=== PATIENT | male | born 1990 | race Caucasian/White ===

== ENCOUNTER 2020-02-05 21:55 | Emergency (ER) | payer OTHER ==
[~2020-02-05] VITALS: Ht 170.2 cm; Wt 99.8 kg
[2020-02-05 21:55] VITALS: BP 146/85
[2020-02-05] MEDS ORDERED: LISI-538 PO (22:16)
[2020-02-05] MEDS ORDERED: HYDR-3363 PO (22:16)
[2020-02-05] MEDS ORDERED: LEXA1TAB PO (22:16)
[2020-02-05] MEDS ORDERED: BENA25CA4 PO (22:16)
[2020-02-05] MEDS ORDERED: BUPR15TA PO (22:16)
[2020-02-06] MEDS ORDERED: HYDROCORTISONE 1% CREAM 30 GM TOP ONE
[2020-02-06] MEDS ORDERED: predniSONE 20 MG TAB PO ONE
[2020-02-06] MEDS ORDERED: HYDR1CRE30 TOP (00:02)
[2020-02-06] MEDS ORDERED: CLAR10CA3 PO (00:02)
[2020-02-06] MEDS ORDERED: PRED20TA PO (00:02)
== END 2020-02-06 00:28 | disposition home or self-care (01) ==
LOC: M ED 21:55
DX: R21 Rash and other nonspecific skin eruption (principal); I10 Essential (primary) hypertension; F11.21 Opioid dependence, in remission; F41.9 Anxiety disorder, unspecified; F17.200 Nicotine dependence, unspecified, uncomplicated; Z79.899 Other long term (current) drug therapy

== ENCOUNTER 2020-02-13 20:39 | Emergency (ER) | payer OTHER ==
[~2020-02-13] VITALS: Ht 167.6 cm; Wt 99.8 kg
[~2020-02-13 20:39] MED LIST: BENA25CA4 PO; BUPR15TA PO; CLAR10CA3 PO; HYDR-3363 PO; HYDR1CRE30 TOP; LEXA1TAB PO; LISI-538 PO; PRED20TA PO
[2020-02-13] MEDS ORDERED: NAPR-885 PO (21:52)
[2020-02-13 22:29] LABS: BASO # 0.1 10^3/uL (0.0-0.2); BASO % 0.5 % (0.0-1.0); EOS % 0.4 % (0.0-3.0); HEMATOCRIT 43.7 % (42.0-52.0); HEMOGLOBIN 14.9 g/dl (13.5-17.5); LYMPH # 1.5 10^3/uL (1.5-5.0); LYMPH % 16.9 % (24.0-44.0); MEAN CORPUSCULAR HEMOGLOBIN 29.7 pg (27.0-33.0); MEAN CORPUSCULAR HGB CONC 34.1 g/dl (32.0-36.5); MEAN CORPUSCULAR VOLUME 87.2 fl (80.0-96.0); MONO # 0.4 10^3/uL (0.0-0.8); MONO % 4.2 % (0.0-5.0); NEUTROPHILS # 7.1 10^3/uL (1.5-8.5); NEUTROPHILS % 77.7 % (36.0-66.0); PLATELET COUNT, AUTOMATED 296 10^3/uL (150-450); RED BLOOD COUNT 5.01 10^6/uL (4.30-6.10); WHITE BLOOD COUNT 9.1 10^3/uL (4.0-10.0)
[2020-02-13 22:41] LABS: INR 1.02; PROTHROMBIN TIME 13.6 SECONDS (11.8-14.0)
[2020-02-13 22:52] LABS: ALBUMIN 4.2 GM/DL (3.2-5.2); ALT/SGPT 50 U/L (12-78); BILIRUBIN,DIRECT 0.1 MG/DL (0.0-0.2); BILIRUBIN,TOTAL 0.2 MG/DL (0.2-1.0); BLOOD UREA NITROGEN 15 MG/DL (7-18); CALCIUM LEVEL 8.9 MG/DL (8.5-10.1); CARBON DIOXIDE LEVEL 27 MEQ/L (21-32); CHLORIDE LEVEL 108 MEQ/L (98-107); CREATININE FOR GFR 1.16 MG/DL (0.70-1.30); GLOMERULAR FILTRATION RATE > 60.0 (>60); GLUCOSE, FASTING 98 MG/DL (70-100); LIPASE 146 U/L (73-393); POTASSIUM SERUM 3.9 MEQ/L (3.5-5.1); SODIUM LEVEL 141 MEQ/L (136-145); TOTAL PROTEIN 7.1 GM/DL (6.4-8.2)
[2020-02-13 23:14] VITALS: BP 140/79
== END 2020-02-13 23:32 | disposition home or self-care (01) ==
LOC: M ED 20:39
DX: K62.5 Hemorrhage of anus and rectum (principal); K76.0 Fatty (change of) liver, not elsewhere classified; F17.200 Nicotine dependence, unspecified, uncomplicated; Z79.52 Long term (current) use of systemic steroids; Z79.899 Other long term (current) drug therapy

== ENCOUNTER 2020-03-19 12:14 | Emergency (ER) | payer MEDICAID ==
[~2020-03-19] VITALS: Ht 167.6 cm; Wt 95.8 kg
[~2020-03-19 12:14] MED LIST changes: +NAPR-885 PO
[2020-03-19] MEDS ORDERED: NS 1,000 ML IV ONE (13:30)
[2020-03-19] MEDS: GASTROGRAFIN SOLUTION 30ML PO SCH ×2 (14:30→15:06)
[2020-03-19 14:34] LABS: BASO % 0.6 % (0.0-1.0); EOS # 0.3 10^3/uL (0.0-0.5); EOS % 4.6 % (0.0-3.0); HEMATOCRIT 45.8 % (42.0-52.0); HEMOGLOBIN 15.4 g/dl (13.5-17.5); LYMPH # 2.3 10^3/uL (1.5-5.0); LYMPH % 33.7 % (24.0-44.0); MEAN CORPUSCULAR HEMOGLOBIN 29.2 pg (27.0-33.0); MEAN CORPUSCULAR HGB CONC 33.6 g/dl (32.0-36.5); MEAN CORPUSCULAR VOLUME 86.9 fl (80.0-96.0); MONO # 0.4 10^3/uL (0.0-0.8); MONO % 6.1 % (0.0-5.0); NEUTROPHILS # 3.7 10^3/uL (1.5-8.5); NEUTROPHILS % 54.7 % (36.0-66.0); PLATELET COUNT, AUTOMATED 282 10^3/uL (150-450); RED BLOOD COUNT 5.27 10^6/uL (4.30-6.10); WHITE BLOOD COUNT 6.7 10^3/uL (4.0-10.0)
[2020-03-19 14:38] LABS: ALBUMIN 4.3 GM/DL (3.2-5.2); ALT/SGPT 41 U/L (12-78); AMYLASE 33 U/L (25-115); BILIRUBIN,DIRECT < 0.1 MG/DL (0.0-0.2); BILIRUBIN,TOTAL 0.3 MG/DL (0.2-1.0); BLOOD UREA NITROGEN 11 MG/DL (7-18); CALCIUM LEVEL 9.3 MG/DL (8.5-10.1); CARBON DIOXIDE LEVEL 29 MEQ/L (21-32); CHLORIDE LEVEL 105 MEQ/L (98-107); CREATININE FOR GFR 0.84 MG/DL (0.70-1.30); GLOMERULAR FILTRATION RATE > 60.0 (>60); GLUCOSE, FASTING 80 MG/DL (70-100); LIPASE 114 U/L (73-393); POTASSIUM SERUM 4.1 MEQ/L (3.5-5.1); SODIUM LEVEL 139 MEQ/L (136-145); TOTAL PROTEIN 7.2 GM/DL (6.4-8.2)
[2020-03-19 14:47] LABS: INR 1.01; PROTHROMBIN TIME 13.5 SECONDS (12.5-14.3)
[2020-03-19 14:48] LABS: PARTIAL THROMBOPLASTIN TIME 30.2 SECONDS (24.2-38.5)
[2020-03-19] MEDS ORDERED: ACETAMINOPHEN 500 MG TAB PO ONE (15:00)
[2020-03-19 15:34] LABS: ERYTHROCYTE SEDIMENTATION RATE 7 mm/hr (0-15)
[2020-03-19] MEDS ORDERED: ISOVUE-370 76% 100ML VIAL As Ordered ONE (16:14)
[2020-03-19 16:51] LABS: CLOSTRIDIUM DIFFICILE PCR NEGATIVE (NEGATIVE)
[2020-03-19] MEDS ORDERED: CIPR-249 PO (17:42)
[2020-03-19] MEDS ORDERED: DICY10CA13 PO (17:42)
[2020-03-19] MEDS ORDERED: CIPROFLOXACIN 500MG TABLET PO ONE (17:45)
[2020-03-19 17:59] VITALS: BP 133/92
== END 2020-03-19 18:11 | disposition home or self-care (01) ==
LOC: M ED 12:14
DX: R19.7 Diarrhea, unspecified (principal); K92.1 Melena; K52.82 Eosinophilic colitis; R53.81 Other malaise; R53.83 Other fatigue; R63.4 Abnormal weight loss; R21 Rash and other nonspecific skin eruption; I10 Essential (primary) hypertension; E78.5 Hyperlipidemia, unspecified; K76.0 Fatty (change of) liver, not elsewhere classified; Z87.442 Personal history of urinary calculi; F17.200 Nicotine dependence, unspecified, uncomplicated; Z83.79 Family history of other diseases of the digestive system
CPT/HCPCS: 74177; 80048; 80076; 81001; 82150; 83605; 83690; 85025; 85610; 85652; 85730; 86140; 87040; 87493; 87507; 96360; 99284; Q9963; Q9967

== ENCOUNTER → 2020-04-25 | Outpatient (REF) | payer OTHER ==
[~2020-04-25] MED LIST changes: +CIPR-249 PO; +DICY10CA13 PO
== END ==
LOC: M LAB REF 16:07
PROVIDERS: ATTEND Preventive Medicine Undersea and Hyperbaric Medicine
DX: K58.0 Irritable bowel syndrome with diarrhea (principal)

== ENCOUNTER 2020-08-26 13:31 | Emergency (ER) | payer OTHER ==
[~2020-08-26] VITALS: Ht 167.6 cm; Wt 101.6 kg
[~2020-08-26 13:31] MED LIST changes: -LISI-538 PO; +LISI20TA33 PO
[2020-08-26] MEDS ORDERED: ISOVUE-370 76% 100ML VIAL As Ordered ONE (15:35)
--- NOTE | 2020-08-26 16:53 | REP ---
INDICATION: LUQ pain, ventral hernia COMPARISON: 03/19/2020. TECHNIQUE: CT Scan of the abdomen and pelvis was performed with intravenous administration of 100 cc of Isovue 370, without oral contrast. Sagittal and coronal reconstruction images are performed. FINDINGS: Lung bases: Unremarkable. Liver: Normal Gallbladder: Unremarkable. Spleen: Normal. Adrenals: Normal. Pancreas: Normal. Kidneys: Normal. Small and large bowel: Unremarkable. Free fluid: None. Abdominal aorta: No aneurysm or dissection. Adenopathy: None. Appendix: Not inflamed. Osseous structures: Unremarkable. Pelvis: No mass. There is no evidence of anterior abdominal wall hernia. IMPRESSION: Negative CT abdomen and pelvis. <Electronically signed by Terrance Ahumada > 08/26/20 [id number]
[2020-08-26 18:10] VITALS: BP 135/82
== END 2020-08-26 18:12 | disposition home or self-care (01) ==
LOC: M ED 13:31
DX: K43.9 Ventral hernia without obstruction or gangrene (principal); I10 Essential (primary) hypertension; Z79.899 Other long term (current) drug therapy
CPT/HCPCS: 74177; 80047; 99284; Q9967

== ENCOUNTER 2020-10-13 23:47 | Emergency (ER) | payer OTHER ==
[~2020-10-13] VITALS: Ht 167.6 cm; Wt 95.5 kg
[2020-10-14] MEDS ORDERED: NAPROXEN 250 MG TAB PO ONE (00:45)
[2020-10-14] MEDS ORDERED: LIDOCAINE 4% CREAM 5GM (LMX4) TOP ONE (00:45)
--- NOTE | 2020-10-14 01:25 | REPVR ---
PROCEDURE INFORMATION: Exam: XR Right Foot Exam date and time: 10/14/2020 12:45 AM Age: 30 years old Clinical indication: Pain; Foot; Right TECHNIQUE: Imaging protocol: XR Right foot. Views: 3 or more views. COMPARISON: CR Ankle, complete RIGHT 10/14/2020 12:14 AM FINDINGS: Bones/joints: In the oblique view (image 1 of series 8), there is a calcific density lateral to the anterior process of the calcaneus, which may represent an avulsion fracture. No other fractures are noted in the right foot. The joint spaces and alignment are maintained. Soft tissues: There is soft tissue swelling in the dorsal aspect of the right midfoot. IMPRESSION: Calcific density adjacent to the anterior process of the right calcaneus, which may represent an avulsion fracture. Electronically signed by: Migel Poon On 10/14/2020 01:25:07 AM
--- NOTE | 2020-10-14 01:25 | REPVR ---
PROCEDURE INFORMATION: Exam: XR Right Ankle Exam date and time: 10/14/2020 12:44 AM Age: 30 years old Clinical indication: Pain; Right; Patient HX: Missed step and landed wrong on foot/ankle. Unable to weight bear. Additional info: Injury TECHNIQUE: Imaging protocol: XR Right ankle. Views: 3 or more views. COMPARISON: CR Foot, complete RIGHT 10/14/2020 12:28:56 AM FINDINGS: Bones/joints: In the oblique view (image 1 of series 3), there is a calcific density adjacent to the anterior process of the right calcaneus, which may represent an avulsion fracture. No other fractures are noted in the right ankle. The ankle mortise is symmetric. The joint spaces are preserved. No arthropathy is noted. Soft tissues: There is soft tissue swelling along the dorsal aspect of the right midfoot. IMPRESSION: Calcific density adjacent to the anterior process of the right calcaneus, which may represent an avulsion fracture. Electronically signed by: Migel Poon On 10/14/2020 01:25:29 AM
[2020-10-14] MEDS ORDERED: PERCOCET 5MG/325MG TAB PO ONE (01:30)
[2020-10-14] MEDS ORDERED: MORPHINE 10 MG/ML 1ML VIAL (J2270) IM ONE (01:50)
[2020-10-14] MEDS ORDERED: MORPHINE 4 MG/ML 1ML VIAL/SYRINGE (J2270) IV ONE (02:05)
--- NOTE | 2020-10-14 04:12 | REPVR ---
PROCEDURE INFORMATION: Exam: CT Right Lower Extremity Without Contrast, Foot Exam date and time: 10/14/2020 3:23 AM Age: 30 years old Clinical indication: Pain; Foot; Right; Additional info: Pain out of proportion to injury, avulsion FX TECHNIQUE: Imaging protocol: CT of the Right lower extremity without contrast was performed. Exam focused on the foot. Radiation optimization: All CT scans at this facility use at least one of these dose optimization techniques: automated exposure control; mA and/or kV adjustment per patient size (includes targeted exams where dose is matched to clinical indication); or iterative reconstruction. COMPARISON: CR Foot, complete RIGHT 10/14/2020 12:28 AM FINDINGS: Bones/joints: Slightly comminuted cortical margin avulsion fracture superolateral calcaneus. Soft tissues: Soft tissue edema laterally 2 cortical avulsion fractures. IMPRESSION: Slightly comminuted cortical margin fracture superolateral margin of the calcaneus. Electronically signed by: Sofy Godfrey On 10/14/2020 04:12:06 AM
[2020-10-14] MEDS ORDERED: OXYCODONE/APAP 5MG/325MG(BULK FOR ED) 1 TABLET PO ONE (04:45)
[2020-10-14 04:52] VITALS: BP 141/97
== END 2020-10-14 05:04 | disposition home or self-care (01) ==
LOC: M ED 23:47
DX: S92.001A Unspecified fracture of right calcaneus, initial encounter for closed fracture (principal); X50.0XXA Overexertion from strenuous movement or load, initial encounter; Y92.9 Unspecified place or not applicable; Y93.9 Activity, unspecified; Y99.9 Unspecified external cause status; I10 Essential (primary) hypertension; Z79.899 Other long term (current) drug therapy
CPT/HCPCS: 73610; 73630; 73700; 96374; 99284; J2270

== ENCOUNTER → 2023-10-11 | Outpatient (CLI) | payer BC ==
[~2023-10-11] MED LIST changes: +DICY-61 PO; -DICY10CA13 PO
== END ==
LOC: M PLAIMG 13:21
PROVIDERS: ATTEND Internal Medicine Cardiovascular Disease
DX: R06.2 Wheezing (principal)

== ENCOUNTER → 2023-10-14 | Outpatient (CLI) | payer BC | LOC: M WHC 06:59 | PROVIDERS: ATTEND Nurse Practitioner Adult Health | DX: K43.9 Ventral hernia without obstruction or gangrene (principal); R07.89 Other chest pain; R06.2 Wheezing ==

== ENCOUNTER → 2024-03-10 | Outpatient (CLI) | payer BC | LOC: M SOG 07:24 | PROVIDERS: ATTEND Physician Assistant | DX: M25.562 Pain in left knee (principal) ==

== ENCOUNTER → 2024-04-11 | Outpatient (CLI) | payer BC ==
[2024-04-11 11:12] LABS: BASO % 0.3 % (0.0-1.0); EOS # 0.4 10^3/uL (0.0-0.5); EOS % 3.6 % (0.0-3.0); HEMOGLOBIN 15.5 g/dl (13.5-17.5); LYMPH # 2.4 10^3/uL (1.5-5.0); LYMPH % 24.3 % (24.0-44.0); MEAN CORPUSCULAR HEMOGLOBIN 29.9 pg (27.0-33.0); MEAN CORPUSCULAR HGB CONC 34.4 g/dl (32.0-36.5); MEAN CORPUSCULAR VOLUME 86.9 fl (80.0-96.0); MONO # 0.6 10^3/uL (0.0-0.8); MONO % 6.2 % (2.0-8.0); NEUTROPHILS # 6.4 10^3/uL (1.5-8.5); NEUTROPHILS % 65.1 % (36.0-66.0); PLATELET COUNT, AUTOMATED 256 10^3/uL (150-450); RED BLOOD COUNT 5.18 10^6/uL (4.30-6.10); WHITE BLOOD COUNT 9.8 10^3/uL (4.0-10.0)
[2024-04-11 11:37] LABS: THYROID STIMULATING HORMONE 2.134 uIU/ML (0.55-4.78); TOTAL 25(OH) VITAMIN D 13.3 NG/ML (20.0-100.0)
[2024-04-11 11:38] LABS: ALBUMIN 3.9 G/DL (3.2-5.2); ALKALINE PHOSPHATASE 106 U/L (40-129); ALT/SGPT 26 U/L (7.0-40); AST/SGOT 12 U/L (<34); BILIRUBIN,TOTAL 0.4 MG/DL (0.3-1.2); BLOOD UREA NITROGEN 9 MG/DL (9-23); CALCIUM LEVEL 9.5 MG/DL (8.5-10.1); CARBON DIOXIDE LEVEL 27 MMOL/L (20-31); CHLORIDE LEVEL 104 MMOL/L (98-107); CHOLESTEROL LEVEL 151 MG/DL (<200); CHOLESTEROL RISK RATIO 2.63 (<5); CREATININE FOR GFR 0.75 MG/DL (0.70-1.30); FREE T4 1.31 NG/DL (0.89-1.76); GLOMERULAR FILTRATION RATE > 60.0 (>60); GLUCOSE, FASTING 87 MG/DL (60-100); HDL CHOLESTEROL 57.3 MG/DL (>40); LDL CHOLESTEROL 69.7 MG/DL (<100); NON-HDL-C 93.7 MG/DL; POTASSIUM SERUM 4.1 MMOL/L (3.5-5.1); SODIUM LEVEL 139 MMOL/L (136-145); TOTAL PROTEIN 7.4 G/DL (5.7-8.2); TRIGLYCERIDES LEVEL 120 MG/DL (<150)
== END ==
LOC: M WUC 08:08
PROVIDERS: ATTEND Nurse Practitioner Adult Health
DX: R21 Rash and other nonspecific skin eruption (principal); L75.0 Bromhidrosis; Z83.3 Family history of diabetes mellitus